=== PATIENT | male | born 1955 | race African-American/Black ===

== ENCOUNTER 2023-06-16 21:40 | Emergency (ER) | payer OTHER ==
[~2023-06-16] VITALS: Ht 185.4 cm; Wt 123.0 kg
[2023-06-16 21:44] VITALS: BP 128/70; PULSE 90; RESP 18; TEMP 98.2; O2SAT 96
== END 2023-06-16 22:43 | disposition left against medical advice (07) ==
LOC: ER 21:40
DX: M25.561 Pain in right knee (principal); Z53.21 Procedure and treatment not carried out due to patient leaving prior to being seen by health care provider
CPT/HCPCS: 99281